=== PATIENT | male | born 1950 | race African-American/Black ===

== ENCOUNTER 2020-04-17 15:10 | Outpatient (CLI) | payer MEDICARE ==
[2020-04-18 02:22] LABS: SARS-CoV-2 PCR by NAA Not Detected (NotDetected)
== END 2020-04-17 15:11 | disposition home or self-care (01) ==
LOC: LABBT 15:10
PROVIDERS: ATTEND Specialist
DX: N18.6 End stage renal disease (principal); Z20.822 Contact with and (suspected) exposure to COVID-19
CPT/HCPCS: U0003; U0005; 87635

== ENCOUNTER 2020-04-28 07:41 | Day surgery (SDC) | payer MEDICARE ==
[2020-04-28 09:17] LABS: Hemoglobin 10.2 g/dL (14.0-18.0); Mean Corpuscular HGB CONC 31.5 g/dL (32.0-36.0); Platelet Count 297 thou/uL (130-400); Red Blood Cell (RBC) Count 3.08 mill/uL (4.70-6.10)
[2020-04-28 09:33] LABS: ALT (SGPT) 17 U/L (8-55); AST (SGOT) 44 U/L (5-34); Albumin 2.4 g/dL (3.4-4.8); Alkaline Phosphatase 66 U/L (40-110); Anion Gap 11 mmol/L (10-20); BUN (Urea Nitrogen) 15 mg/dL (8.4-25.7); Bilirubin, Total 0.4 mg/dL (0.2-1.2); Calc. Creatinine Clearance 0 mL/min (70-130); Calcium 8.5 mg/dL (7.8-10.44); Carbon Dioxide 32 mmol/L (23-31); Chloride 96 mmol/L (98-107); Glucose 95 mg/dL (83-110); Potassium 3.6 mmol/L (3.5-5.1); Protein, Total 6.4 g/dL (5.8-8.1); Sodium 135 mmol/L (136-145)
[2020-04-28 09:41] LABS: #Basophils 0.1 thou/uL (0.0-0.2); #Eosinphils 0.5 thou/uL (0.0-0.7); #Lymphocytes 2.3 thou/uL (1.20-3.40); #Monocytes 0.8 thou/uL (0.11-0.59); #Neutrophils 3.3 thou/uL (1.40-6.50); %Basophils 1.2 % (0.0-1.0); %Eosinophils 7.3 % (0.0-10.0); %Lymphocytes 33.4 % (21.0-51.0); %Monocytes 11.2 % (0.0-10.0); MDiff Complete? YES; Macrocytosis SLIGHT = 6-15 cells (100X) (0-5/hpf); Platelet Morphology Comment Appears Adequate; Poikilocytosis SLIGHT = 6-15 cells (100X) (0-5/hpf); Polychromasia SLIGHT = 2-3 cells (100X) (0-2/hpf); Tear Drops SLIGHT = 2-5 cells (100X) (0-1/hpf)
[2020-04-28 10:03] LABS: CKMB 0.8 ng/mL (0-6.6)
[2020-04-28] MEDS ORDERED: Activase 2 MG VIAL CATH SCH ×2 (10:45→11:45)
[2020-04-28 11:17] LABS: SARS-CoV-2 NAA Rapid Test Not Detected (NotDetected)
[2020-04-28] MEDS ORDERED: Labetalol HCl 100 MG/20 ML VIAL ONE (14:17)
[2020-04-28] MEDS ORDERED: Lidocaine 1% w/Epinephrine 1:100K 20 ML VIAL ONE (15:17)
[2020-04-28] MEDS ORDERED: Bupivacaine PF 0.5% 30 ML VIAL ONE (15:17)
[2020-04-28] MEDS ORDERED: Lidocaine 2% PF 5 ML VIAL ONE ×2 (15:17→15:18)
[2020-04-28] MEDS ORDERED: Sodium Chloride 0.9% 20 ML ONE (15:18)
[2020-04-28] MEDS ORDERED: Heparin 10,000 UNITS/ 10 ML VIAL ONE (15:18)
[2020-04-28] MEDS ORDERED: Ketamine 50 MG/ML (10ML VIAL) ONE (15:19)
[2020-04-28] MEDS ORDERED: Fentanyl 100 MCG/2 ML VIAL ONE (15:19)
[2020-04-28] MEDS ORDERED: Midazolam HCl 2 mg/2 ml Vial ONE (15:20)
[2020-04-28] MEDS ORDERED: Dexmedetomidine 200 MCG/2 ML VIAL ONE (15:20)
[2020-04-28] MEDS ORDERED: Glycopyrrolate 0.2 MG/ML 5 ML SYRINGE ONE (15:44)
[2020-04-28] MEDS ORDERED: Ondansetron PF 4 MG/2 ML Vial ONE (15:44)
[2020-04-28] MEDS ORDERED: PROPOFOL 200 MG/20 ML VIAL ONE (15:44)
== END 2020-04-28 21:45 | disposition home or self-care (01) ==
LOC: ERS 07:41 → SDC/OP 14:00
PROVIDERS: ATTEND Specialist
PROC: 0J2VXYZ Change Other Device in Upper Extremity Subcutaneous Tissue and Fascia, External Approach (ICD-10-PCS; principal; 2020-04-28)
DX: T82.41XA Breakdown (mechanical) of vascular dialysis catheter, initial encounter (principal); E88.81 Metabolic syndrome and other insulin resistance; I12.0 Hypertensive chronic kidney disease with stage 5 chronic kidney disease or end stage renal disease; E11.22 Type 2 diabetes mellitus with diabetic chronic kidney disease; N18.6 End stage renal disease; E66.01 Morbid (severe) obesity due to excess calories; Z68.43 Body mass index [BMI] 50.0-59.9, adult; Z79.82 Long term (current) use of aspirin; Z79.899 Other long term (current) drug therapy; Z20.822 Contact with and (suspected) exposure to COVID-19
CPT/HCPCS: 0240U; 36581; 71045; 80053; 82553; 84484; 85025; 93005; 94760; C1751; C1752; J2997; 36415; 96374; J0690; J1644; J2001; J2250; J2405; J2704; J3010; S0020

== ENCOUNTER 2023-01-22 10:18 | Emergency (ER) | payer MEDICARE ==
[2023-01-22 13:17] LABS: HBSAB Concentration Less than 8.00 mIU/mL; Hep B Surf AB Non-Reactive (NonReactive); Hep B Surf Ag Non-Reactive S/CO (NonReactive)
[2023-01-22] MEDS ORDERED: Ondansetron ODT 4 MG TAB ONE (13:17)
== END 2023-01-22 18:39 | disposition home or self-care (01) ==
LOC: ERS 10:18
DX: I12.0 Hypertensive chronic kidney disease with stage 5 chronic kidney disease or end stage renal disease (principal); N18.6 End stage renal disease; E11.22 Type 2 diabetes mellitus with diabetic chronic kidney disease; Z99.2 Dependence on renal dialysis
CPT/HCPCS: 36415; 86706; 87340; 90935; 99283; G0257; Q0162

== ENCOUNTER 2024-09-18 00:38 | Observation (INO) | payer MEDICARE ==
[2024-09-18 02:28] LABS: HBSAB Concentration 23.70 mIU/mL; Hep B Core Total Ab NONREACTIVE (NonReactive); Hep B Core Total Index 0.20 S/CO (0-0.79); Hep B Surf Ag NONREACTIVE S/CO (NonReactive); Hep C IgG Ab NONREACTIVE S/CO (NonReactive); Hep C Index 0.23 S/CO (0-0.79)
[2024-09-18] MEDS ORDERED: Ondansetron PF 4 MG/2 ML Vial IVP PRN (03:05)
[2024-09-18] MEDS ORDERED: Calcium Carbonate 500 MG ChewTAB PO PRN (03:05)
[2024-09-18] MEDS ORDERED: Acetaminophen 325 MG TAB PO PRN (03:05)
[2024-09-18] MEDS ORDERED: Dextrose 50% Abboject 50 ML SYRINGE SLOW IVP PRN (03:11)
[2024-09-18] MEDS ORDERED: Glucagon 1 MG/ML KIT IM PRN (03:11)
[2024-09-18 06:05] LABS: #Basophils Less than 0.03 10x3/uL (0.0-0.2); #Eosinophils 0.08 10x3/uL (0.0-0.7); #Monocytes 0.51 10x3/uL (0.11-0.59); #Neutrophils 5.85 10x3/uL (1.40-6.50); %Basophils 0.3 % (0.0-1.0); %Eosinophils 1.2 % (0.0-10.0); %Lymphocytes 5.5 % (21.0-51.0); %Monocytes 7.4 % (0.0-10.0); %Neutrophils 85.2 % (42.0-75.0); Hematocrit 30.4 % (42.0-52.0); Hemoglobin 10.2 g/dL (14.0-18.0); Mean Corpuscular Hemoglobin 31.4 pg (27.0-31.0); Mean Corpuscular Volume 93.5 fL (78.0-98.0); Platelet Count 248 10x3/uL (130-400); Red Blood Cell (RBC) Count 3.25 mill/uL (4.70-6.10); White Blood Cell (WBC) Count 6.87 10x3/uL (4.8-10.8)
[2024-09-18 08:31] VITALS: BMI 27.9
[2024-09-18 13:30] LABS: ALT (SGPT) 12 U/L (Less than 45); AST (SGOT) 24 U/L (11-34); Albumin 2.6 g/dL (3.1-4.5); Alkaline Phosphatase 63 U/L (40-110); Anion Gap 16 mmol/L (10-20); BUN (Urea Nitrogen) 18 mg/dL (8.4-25.7); Bilirubin, Total 0.4 mg/dL (0.3-1.2); Calc. Creatinine Clearance 20 mL/min (70-130); Calcium 9.1 mg/dL (7.8-10.44); Carbon Dioxide 30 mmol/L (23-31); Chloride 96 mmol/L (98-107); Globulin 4.3 g/dL (2.4-3.5); Glucose 103 mg/dL (83-110); Potassium 3.9 mmol/L (3.5-5.1); Sodium 138 mmol/L (136-145)
[2024-09-19 04:55] LABS: Hematocrit 28.6 % (42.0-52.0); Hemoglobin 9.5 g/dL (14.0-18.0); Mean Corpuscular Hemoglobin 31.3 pg (27.0-31.0); Mean Corpuscular Volume 94.1 fL (78.0-98.0); Platelet Count 234 10x3/uL (130-400); Red Blood Cell (RBC) Count 3.04 mill/uL (4.70-6.10); White Blood Cell (WBC) Count 5.25 10x3/uL (4.8-10.8)
[2024-09-19 05:12] LABS: Anion Gap 17 mmol/L (10-20); BUN (Urea Nitrogen) 19 mg/dL (8.4-25.7); Calc. Creatinine Clearance 17 mL/min (70-130); Calcium 9.6 mg/dL (7.8-10.44); Carbon Dioxide 26 mmol/L (23-31); Chloride 96 mmol/L (98-107); Glucose 88 mg/dL (83-110); Potassium 4.3 mmol/L (3.5-5.1); Sodium 135 mmol/L (136-145)
[2024-09-19] MEDS: levETIRAcetam 500 MG TAB PO SCH ×2 (10:15→17:52)
[2024-09-19] MEDS: Isosorbide Mononitrate 30 MG ER.TAB.S PO SCH (10:16)
[2024-09-19] MEDS: EPOETIN ALFA-EPBX (ESRD) 10,000 UNITS/ML VIAL SC SCH (15:30)
[2024-09-19 18:01] VITALS: BP 150/76; TEMP 98.3
[2024-09-19] MEDS ORDERED: levETIRAcetam 500 MG TAB PO SCH (21:00)
== END 2024-09-19 18:13 | disposition home or self-care (01) ==
LOC: ERS 00:38 → 2NO 03:12
PROVIDERS: ADMIT Student in an Organized Health Care Education/Training Program; ATTEND Internal Medicine
DX: I13.2 Hypertensive heart and chronic kidney disease with heart failure and with stage 5 chronic kidney disease, or end stage renal disease (principal); N18.6 End stage renal disease; I50.9 Heart failure, unspecified; D63.1 Anemia in chronic kidney disease; I25.10 Atherosclerotic heart disease of native coronary artery without angina pectoris; E11.22 Type 2 diabetes mellitus with diabetic chronic kidney disease; E66.9 Obesity, unspecified; Z68.28 Body mass index [BMI] 28.0-28.9, adult; Z99.2 Dependence on renal dialysis; Z79.02 Long term (current) use of antithrombotics/antiplatelets; Z79.899 Other long term (current) drug therapy
CPT/HCPCS: 80048; 80053; 82962 ×2; 85025; 85027; 86704; 86706; 86803; 87340; 93798; 99285; Q5105; 36415; 36416